=== PATIENT | female | born 1955 | race Caucasian/White ===

== ENCOUNTER 2018-01-30 09:07 | Day surgery (SDC) | payer OTHER ==
[2018-01-30] MEDS ORDERED: FENTAnyl 50 MCG/ML VIAL (11:58)
[2018-01-30] MEDS ORDERED: MIDAZOLAM 1 MG/ML 2 ML INJ (11:58)
== END 2018-01-30 13:34 | disposition home or self-care (01) ==
LOC: GIL 09:07
DX: Z12.11 Encounter for screening for malignant neoplasm of colon (principal); K64.8 Other hemorrhoids
CPT/HCPCS: 45378